=== PATIENT | female | born 1955 | race Caucasian/White ===

== ENCOUNTER 2017-04-03 15:02 | Emergency (ER) | payer MEDICAID ==
[~2017-04-03] VITALS: Ht 157.5 cm; Wt 111.1 kg
[2017-04-03 15:11] VITALS: BP_SYST 192
[2017-04-03] MEDS ORDERED: ONDANSETRON HCL 4 MG/2 ML VIAL IVP ONE (17:00)
[2017-04-03 17:15] LABS: BILIRUBIN,URINE NEGATIVE (NEGATIVE); BLOOD, URINE NEGATIVE (NEGATIVE); CLARITY/URINE CLEAR (CLEAR); COLOR,URINE YELLOW (YELLOW); GLUCOSE,URINE 3+ (NEGATIVE); KETONES,URINE NEGATIVE (NEGATIVE); LEUKOCYTE ESTERASE ,URINE NEGATIVE (NEGATIVE); NITRITE, URINE NEGATIVE (NEGATIVE); PROTEIN URINE NEGATIVE (NEGATIVE); UROBILINOGEN,URINE 0.2 (0.2-1.0)
[2017-04-03 17:17] LABS: BASOPHILS % (AUTO) 0.5 % (0.0-2.0); EOSINOPHILS # (AUTO) 0.3 K/uL (0.0-0.4); EOSINOPHILS % (AUTO) 3.6 % (0.0-4.0); HEMOGLOBIN 14.1 g/dL (12.0-16.0); LYMPHOCYTES # (AUTO) 3.2 K/uL (1.0-5.5); LYMPHOCYTES % (AUTO) 34.9 % (20.5-51.5); MEAN CORPUSCULAR HEMOGLOBIN 28 pg (27-31); MEAN CORPUSCULAR HGB CONC 33 % (32-36); MEAN CORPUSCULAR VOLUME 86 fL (79.0-98.0); MONOCYTES # (AUTO) 0.5 K/uL (0.0-1.0); MONOCYTES % (AUTO) 5.1 % (1.7-9.3); NEUTROPHILS # (AUTO) 5.1 K/uL (1.8-7.7); NEUTROPHILS % (AUTO) 55.9 % (40.0-70.0); PLATELET COUNT (AUTO) 200 K/uL (130-430); RED CELL DISTRIBUTION WIDTH 13.4 % (9.0-15.0); WHITE BLOOD COUNT (AUTO) 9.1 K/uL (4.8-10.8)
[2017-04-03 17:36] LABS: BACTERIA,URINE MODERATE /HPF (None Seen); MUCUS,URINE 1+ /LPF (None Seen); RBC,URINE 0-3 /HPF (0-3); WBC,URINE 0-3 /HPF (0-3)
[2017-04-03 17:40] LABS: CALCIUM 9.4 mg/dL (8.4-11.0); CREATININE 0.85 mg/dL (0.55-1.30)
[2017-04-03 17:44] LABS: ALBUMIN 3.9 g/dL (3.4-4.8); TOTAL BILIRUBIN 0.3 mg/dL (0.0-1.0); TOTAL PROTEIN, SERUM 8.6 g/dL (6.4-8.3)
[2017-04-03] MEDS ORDERED: PANTOPRAZOLE SODIUM 40 MG/VIAL (PROTONIX) IVP ONE (19:15)
[2017-04-03 19:40] VITALS: BP_SYST 166
== END 2017-04-03 19:40 | disposition home or self-care (01) ==
LOC: SED 15:02
DX: K64.4 Residual hemorrhoidal skin tags (principal); N39.0 Urinary tract infection, site not specified; I10 Essential (primary) hypertension
CPT/HCPCS: 36415; 74176; 80053; 81000; 82272; 85025; 87086; 96374; 96375; 99285; C9113; J2405

== ENCOUNTER 2019-02-05 12:38 | Inpatient (IN) | payer MEDICAID, MEDICARE ==
[~2019-02-05] VITALS: Ht 157.5 cm; Wt 110.7 kg
[2019-02-05 12:51] VITALS: BP_SYST 161
[2019-02-05] MEDS ORDERED: NACL 0.9% 1,000 ML IV ONE (14:00)
[2019-02-05 14:26] LABS: BILIRUBIN,URINE NEGATIVE (NEGATIVE); BLOOD, URINE NEGATIVE (NEGATIVE); CLARITY/URINE CLEAR (CLEAR); COLOR,URINE YELLOW (YELLOW); GLUCOSE,URINE NEGATIVE (NEGATIVE); KETONES,URINE NEGATIVE (NEGATIVE); LEUKOCYTE ESTERASE ,URINE NEGATIVE (NEGATIVE); NITRITE, URINE NEGATIVE (NEGATIVE); PROTEIN URINE NEGATIVE (NEGATIVE); UROBILINOGEN,URINE 0.2 (0.2-1.0)
[2019-02-05 15:02] LABS: BASOPHILS % (AUTO) 0.6 % (0.0-2.0); EOSINOPHILS # (AUTO) 0.2 K/uL (0.0-0.4); EOSINOPHILS % (AUTO) 2.6 % (0.0-4.0); HEMOGLOBIN 13.9 g/dL (12.0-16.0); LYMPHOCYTES # (AUTO) 3.3 K/uL (1.0-5.5); MEAN CORPUSCULAR HEMOGLOBIN 29 pg (27-31); MEAN CORPUSCULAR HGB CONC 33 % (32-36); MEAN CORPUSCULAR VOLUME 87 fL (79.0-98.0); MONOCYTES # (AUTO) 0.5 K/uL (0.0-1.0); NEUTROPHILS # (AUTO) 3.2 K/uL (1.8-7.7); NEUTROPHILS % (AUTO) 44.8 % (40.0-70.0); PLATELET COUNT (AUTO) 203 K/uL (130-430); RED BLOOD CELL COUNT(AUTO) 4.84 MIL/uL (4.2-6.2); RED CELL DISTRIBUTION WIDTH 14.2 % (9.0-15.0); WHITE BLOOD COUNT (AUTO) 7.3 K/uL (4.8-10.8)
[2019-02-05 15:13] LABS: CALCIUM 9.5 mg/dL (8.4-11.0); CREATININE 0.94 mg/dL (0.55-1.30); POTASSIUM 4.3 mmol/L (3.5-5.1)
[2019-02-05 15:20] LABS: ALBUMIN 3.6 g/dL (3.4-4.8); TOTAL BILIRUBIN 0.4 mg/dL (0.0-1.0)
[2019-02-05] MEDS ORDERED: LOSA100T3 PO (16:21)
[2019-02-05] MEDS ORDERED: LEVO175T7 PO (16:21)
[2019-02-05] MEDS ORDERED: GLUXR500 PO (16:21)
[2019-02-05 16:44] VITALS: BP_SYST 148
[2019-02-05] MEDS ORDERED: HYDROcodone/ACETAMIN 10-325 MG TAB PO PRN (19:45)
[2019-02-05] MEDS ORDERED: HYDROcodone/ACETAMIN 5-325 MG TAB (NORCO/ VICODIN) PO PRN (19:45)
[2019-02-05] MEDS: POLYETHYLENE GLYCOL 3350, 17 GM/ POWD.PACK PO SCH (19:45)
[2019-02-05] MEDS ORDERED: ONDANSETRON HCL 4 MG/2 ML VIAL IVP PRN (19:45)
[2019-02-05 20:18] VITALS: BP_SYST 160
[2019-02-05] MEDS ORDERED: D5W 1,000 ML IV PRN (20:42)
[2019-02-05] MEDS ORDERED: DEXTROSE 50% JECT 50 ML DISP.SYRIN IVP PRN (20:45)
[2019-02-05] MEDS ORDERED: GLUCOSE 15 GM GEL (in 37.5 GM TUBE) PO PRN (20:45)
[2019-02-05] MEDS ORDERED: LORazepam 2 MG/ML VIAL IVP PRN (20:45)
[2019-02-05] MEDS ORDERED: POLYETHYLENE GLYCOL 3350, 17 GM/ POWD.PACK PO SCH (21:00)
[2019-02-05] MEDS: NORMAL SALINE 5 ML DISP.SYRIN IVF SCH (21:48)
[2019-02-05] MEDS ORDERED: NORMAL SALINE 5 ML DISP.SYRIN IVF SCH (22:00)
[2019-02-05] MEDS: INSULIN REGULAR, HUMAN 100 UNITS/ML, 10 ML VIAL (novoLIN R) SUBCUT PRN (22:00)
[2019-02-05] MEDS ORDERED: cloNIDine HCL 0.1 MG TABLET PO PRN (23:15)
[2019-02-06] VITALS (7 sets, daily range): BP systolic 143–155
[2019-02-06] MEDS: NORMAL SALINE 5 ML DISP.SYRIN IVF SCH ×3 (06:16→20:30)
[2019-02-06] MEDS: LEVOTHYROXINE SODIUM 0.15 MG TABLET PO SCH (06:16)
[2019-02-06 06:25] LABS: BASOPHILS % (AUTO) 0.7 % (0.0-2.0); EOSINOPHILS # (AUTO) 0.3 K/uL (0.0-0.4); EOSINOPHILS % (AUTO) 3.7 % (0.0-4.0); HEMATOCRIT 37.7 % (36-48); HEMOGLOBIN 12.6 g/dL (12.0-16.0); LYMPHOCYTES # (AUTO) 3.4 K/uL (1.0-5.5); LYMPHOCYTES % (AUTO) 48.6 % (20.5-51.5); MEAN CORPUSCULAR HEMOGLOBIN 29 pg (27-31); MEAN CORPUSCULAR HGB CONC 33 % (32-36); MEAN CORPUSCULAR VOLUME 87 fL (79.0-98.0); MONOCYTES # (AUTO) 0.5 K/uL (0.0-1.0); MONOCYTES % (AUTO) 7.4 % (1.7-9.3); NEUTROPHILS # (AUTO) 2.8 K/uL (1.8-7.7); NEUTROPHILS % (AUTO) 39.6 % (40.0-70.0); PLATELET COUNT (AUTO) 175 K/uL (130-430); RED BLOOD CELL COUNT(AUTO) 4.34 MIL/uL (4.2-6.2); RED CELL DISTRIBUTION WIDTH 14.6 % (9.0-15.0)
[2019-02-06] MEDS ORDERED: LEVOTHYROXINE SODIUM 0.075 MG TABLET PO SCH (07:00)
[2019-02-06] MEDS ORDERED: LEVOTHYROXINE SODIUM 0.1 MG, LEVOTHYROXINE SODIUM 0.075 MG PO SCH ×2 (07:00)
[2019-02-06 07:32] LABS: CREATININE 0.88 mg/dL (0.55-1.30); POTASSIUM 4.2 mmol/L (3.5-5.1)
[2019-02-06] MEDS: LOSARTAN POTASSIUM 50 MG TABLET (COZAAR) PO SCH (08:41)
[2019-02-06] MEDS: POLYETHYLENE GLYCOL 3350, 17 GM/ POWD.PACK PO SCH (08:43)
[2019-02-06] MEDS ORDERED: NON-FORMULARY MEDICATION (Levothyroxine Sodium 175 MCG) PO SCH (09:00)
[2019-02-06] MEDS: INSULIN REGULAR, HUMAN 100 UNITS/ML, 10 ML VIAL (novoLIN R) SUBCUT PRN ×2 (11:31→16:44)
[2019-02-06] MEDS ORDERED: IOHEXOL 100 ML IV ONE (13:41)
[2019-02-06] MEDS ORDERED: BISACODYL 5 MG TABLET.DR (DULCOLAX) PO ONE (17:00)
[2019-02-06] MEDS ORDERED: GOLYTELY / COLYTE SOLUTION 4 LITERS PO ONE (18:00)
[2019-02-06] MEDS ORDERED: MAGNESIUM CITRATE 300 ML ORAL SOLUTION PO ONE (19:00)
[2019-02-07] MEDS: LEVOTHYROXINE SODIUM 0.15 MG TABLET PO SCH (04:38)
[2019-02-07 05:43] LABS: EOSINOPHILS # (AUTO) 0.2 K/uL (0.0-0.4); HEMATOCRIT 38.6 % (36-48); HEMOGLOBIN 12.9 g/dL (12.0-16.0); MEAN CORPUSCULAR HGB CONC 33 % (32-36); MONOCYTES # (AUTO) 0.5 K/uL (0.0-1.0); RED BLOOD CELL COUNT(AUTO) 4.46 MIL/uL (4.2-6.2); WHITE BLOOD COUNT (AUTO) 7.4 K/uL (4.8-10.8)
[2019-02-07] MEDS: NORMAL SALINE 5 ML DISP.SYRIN IVF SCH ×3 (05:59→20:36)
[2019-02-07 07:00] LABS: BASOPHILS # (AUTO) 0.1 K/uL (0.0-0.2); BASOPHILS % (AUTO) 0.7 % (0.0-2.0); EOSINOPHILS % (AUTO) 2.8 % (0.0-4.0); LYMPHOCYTES # (AUTO) 3.1 K/uL (1.0-5.5); LYMPHOCYTES % (AUTO) 42.2 % (20.5-51.5); MEAN CORPUSCULAR HEMOGLOBIN 29 pg (27-31); MEAN CORPUSCULAR VOLUME 86 fL (79.0-98.0); MONOCYTES % (AUTO) 6.8 % (1.7-9.3); NEUTROPHILS # (AUTO) 3.5 K/uL (1.8-7.7); NEUTROPHILS % (AUTO) 47.5 % (40.0-70.0); PLATELET COUNT (AUTO) 186 K/uL (130-430); RED CELL DISTRIBUTION WIDTH 14.1 % (9.0-15.0)
[2019-02-07 07:08] LABS: PROTHROMBIN TIME 10.2 SECS (9.5-12.5)
[2019-02-07 07:14] LABS: CALCIUM 9.6 mg/dL (8.4-11.0); CREATININE 0.88 mg/dL (0.55-1.30); POTASSIUM 3.8 mmol/L (3.5-5.1)
[2019-02-07 08:14] VITALS: BP_SYST 146
[2019-02-07] MEDS: LOSARTAN POTASSIUM 50 MG TABLET (COZAAR) PO SCH (08:15)
[2019-02-07] MEDS: POLYETHYLENE GLYCOL 3350, 17 GM/ POWD.PACK PO SCH (08:15)
[2019-02-07] MEDS ORDERED: SIMETHICONE 40 MG/0.6 ML ML ONE (10:57)
[2019-02-07 12:09] VITALS: BP_SYST 156
[2019-02-07] MEDS: MEPERIDINE HCL/PF 100 MG/ML AMP ONE ×2 (12:58→13:00)
[2019-02-07] MEDS: MIDAZOLAM HCL 5 MG/5 ML VIAL ONE ×5 (12:58→13:18)
[2019-02-07 17:01] VITALS: BP_SYST 129
[2019-02-07] MEDS: INSULIN REGULAR, HUMAN 100 UNITS/ML, 10 ML VIAL (novoLIN R) SUBCUT PRN (17:36)
[2019-02-07 20:15] VITALS: BP_SYST 114
[2019-02-08 00:03] VITALS: BP_SYST 121
[2019-02-08 05:52] LABS: BASOPHILS # (AUTO) 0.1 K/uL (0.0-0.2); BASOPHILS % (AUTO) 0.7 % (0.0-2.0); EOSINOPHILS # (AUTO) 0.2 K/uL (0.0-0.4); EOSINOPHILS % (AUTO) 3.4 % (0.0-4.0); HEMATOCRIT 40.9 % (36-48); HEMOGLOBIN 13.6 g/dL (12.0-16.0); LYMPHOCYTES # (AUTO) 3.4 K/uL (1.0-5.5); LYMPHOCYTES % (AUTO) 47.8 % (20.5-51.5); MEAN CORPUSCULAR HEMOGLOBIN 29 pg (27-31); MEAN CORPUSCULAR HGB CONC 33 % (32-36); MEAN CORPUSCULAR VOLUME 87 fL (79.0-98.0); MONOCYTES # (AUTO) 0.4 K/uL (0.0-1.0); MONOCYTES % (AUTO) 5.3 % (1.7-9.3); NEUTROPHILS # (AUTO) 3.1 K/uL (1.8-7.7); NEUTROPHILS % (AUTO) 42.8 % (40.0-70.0); PLATELET COUNT (AUTO) 193 K/uL (130-430); RED CELL DISTRIBUTION WIDTH 14.4 % (9.0-15.0); WHITE BLOOD COUNT (AUTO) 7.2 K/uL (4.8-10.8)
[2019-02-08] MEDS: LEVOTHYROXINE SODIUM 0.15 MG TABLET PO SCH (06:21)
[2019-02-08] MEDS: NORMAL SALINE 5 ML DISP.SYRIN IVF SCH ×2 (06:22→14:35)
[2019-02-08 06:39] LABS: CALCIUM 9.2 mg/dL (8.4-11.0); CREATININE 0.92 mg/dL (0.55-1.30); POTASSIUM 3.7 mmol/L (3.5-5.1)
[2019-02-08 08:00] VITALS: BP_SYST 151
[2019-02-08] MEDS: POLYETHYLENE GLYCOL 3350, 17 GM/ POWD.PACK PO SCH (08:16)
[2019-02-08] MEDS: LOSARTAN POTASSIUM 50 MG TABLET (COZAAR) PO SCH (08:17)
[2019-02-08] MEDS: INSULIN REGULAR, HUMAN 100 UNITS/ML, 10 ML VIAL (novoLIN R) SUBCUT PRN (11:22)
[2019-02-08 13:05] VITALS: BP_SYST 161
[2019-02-08] MEDS ORDERED: LEVO175T7 PO (14:43)
[2019-02-08 14:51] VITALS: BP_SYST 161
[2019-02-08 16:50] VITALS: BP_SYST 144
== END 2019-02-08 18:01 | disposition home or self-care (01) | DRG 241 ==
LOC: SED 12:38 → SMU 15:41
PROVIDERS: ADMIT Preventive Medicine Preventive Medicine/Occupational Environmental Medicine; ATTEND Preventive Medicine Preventive Medicine/Occupational Environmental Medicine
PROC: 0DBH8ZZ Excision of Cecum, Via Natural or Artificial Opening Endoscopic (ICD-10-PCS; 2019-02-07)
PROC: 0DB68ZX Excision of Stomach, Via Natural or Artificial Opening Endoscopic, Diagnostic (ICD-10-PCS; principal; 2019-02-07 13:00)
PROC: 0DB98ZZ Excision of Duodenum, Via Natural or Artificial Opening Endoscopic (ICD-10-PCS; 2019-02-07 13:00)
DX: K29.70 Gastritis, unspecified, without bleeding (principal); E11.22 Type 2 diabetes mellitus with diabetic chronic kidney disease; K59.00 Constipation, unspecified; N28.1 Cyst of kidney, acquired; E03.9 Hypothyroidism, unspecified; K63.5 Polyp of colon; E11.65 Type 2 diabetes mellitus with hyperglycemia; I12.9 Hypertensive chronic kidney disease with stage 1 through stage 4 chronic kidney disease, or unspecified chronic kidney disease; K64.8 Other hemorrhoids; N18.9 Chronic kidney disease, unspecified; E66.01 Morbid (severe) obesity due to excess calories; Z79.899 Other long term (current) drug therapy
CPT/HCPCS: 36415; 43239; 45380; 80048; 80053; 81003; 82962; 83605; 83690-TC; 85025; 85610-TC; 85730-TC; 87081; 88305; 88312; 88313; 96360; 99285; J2175; J2250; J7030; Q9967

== ENCOUNTER 2020-07-27 19:11 | Emergency (ER) | payer MEDICARE, MEDICAID ==
[~2020-07-27] VITALS: Ht 157.5 cm; Wt 108.9 kg
[~2020-07-27 19:11] MED LIST: GLUXR500 PO; LEVO175T7 PO; LOSA100T3 PO
[2020-07-27 19:25] VITALS: BP_SYST 159
[2020-07-27 21:09] LABS: BASOPHILS % (AUTO) 0.6 % (0.0-2.0); EOSINOPHILS # (AUTO) 0.2 K/uL (0.0-0.4); EOSINOPHILS % (AUTO) 2.9 % (0.0-4.0); HEMATOCRIT 41.7 % (36-48); LYMPHOCYTES # (AUTO) 3.2 K/uL (1.0-5.5); LYMPHOCYTES % (AUTO) 43.4 % (20.5-51.5); MEAN CORPUSCULAR HEMOGLOBIN 29 pg (27-31); MEAN CORPUSCULAR HGB CONC 34 % (32-36); MEAN CORPUSCULAR VOLUME 86 fL (79.0-98.0); MONOCYTES # (AUTO) 0.5 K/uL (0.0-1.0); MONOCYTES % (AUTO) 6.2 % (1.7-9.3); NEUTROPHILS # (AUTO) 3.5 K/uL (1.8-7.7); NEUTROPHILS % (AUTO) 46.9 % (40.0-70.0); PLATELET COUNT (AUTO) 189 K/uL (130-430); RED BLOOD CELL COUNT(AUTO) 4.84 MIL/uL (4.2-6.2); RED CELL DISTRIBUTION WIDTH 14.3 % (9.0-15.0); WHITE BLOOD COUNT (AUTO) 7.4 K/uL (4.8-10.8)
[2020-07-27 21:11] LABS: BILIRUBIN,URINE NEGATIVE (NEGATIVE); BLOOD, URINE NEGATIVE (NEGATIVE); CLARITY/URINE CLEAR (CLEAR); COLOR,URINE YELLOW (YELLOW); GLUCOSE,URINE NEGATIVE (NEGATIVE); KETONES,URINE NEGATIVE (NEGATIVE); LEUKOCYTE ESTERASE ,URINE NEGATIVE (NEGATIVE); NITRITE, URINE NEGATIVE (NEGATIVE); PROTEIN URINE NEGATIVE (NEGATIVE); UROBILINOGEN,URINE 0.2 (0.2-1.0)
[2020-07-27 21:13] LABS: CALCIUM 9.2 mg/dL (8.4-11.0); CREATININE 1.01 mg/dL (0.55-1.30); POTASSIUM 3.6 mmol/L (3.5-5.1)
[2020-07-27 21:18] LABS: ALBUMIN 3.8 g/dL (3.4-4.8); TOTAL BILIRUBIN 0.3 mg/dL (0.0-1.0)
[2020-07-27 22:03] VITALS: BP_SYST 147
== END 2020-07-27 22:03 | disposition home or self-care (01) ==
LOC: SED 19:11
DX: R10.13 Epigastric pain (principal); R42 Dizziness and giddiness; R11.0 Nausea; I10 Essential (primary) hypertension; E11.9 Type 2 diabetes mellitus without complications; Z79.899 Other long term (current) drug therapy
CPT/HCPCS: 36415; 80053; 81003; 83690-TC; 85025; 93005; 99284

== ENCOUNTER 2022-11-18 10:50 | Emergency (ER) | payer MEDICARE, MEDICAID ==
[~2022-11-18] VITALS: Ht 160 cm; Wt 81.6 kg
[~2022-11-18 10:50] MED LIST changes: -LOSA100T3 PO; +LOSA100T4 PO
[2022-11-18 10:59] VITALS: BP_SYST 172
--- NOTE | 2022-11-18 11:13 | NUR ---
assumed patient care pt c/o nausea, chills and anxiety for 3 days. patient states she had recent deaths in her family and she has been feel anxious and noted her bs to be elevated. pt aox4 gcs 15 placed in room 3 placed on tele monitor.
[2022-11-18 11:15] VITALS: BP_SYST 144
[2022-11-18] MEDS ORDERED: METOCLOPRAMIDE HCL 10 MG TABLET PO ONE (11:15)
[2022-11-18 11:40] LABS: BASOPHILS % (AUTO) 0.5 % (0.0-2.0); EOSINOPHILS # (AUTO) 0.2 K/uL (0.0-0.4); EOSINOPHILS % (AUTO) 2.1 % (0.0-4.0); HEMATOCRIT 35.8 % (36-48); LYMPHOCYTES # (AUTO) 1.4 K/uL (1.0-5.5); LYMPHOCYTES % (AUTO) 18.7 % (20.5-51.5); MEAN CORPUSCULAR HEMOGLOBIN 29 pg (27-31); MEAN CORPUSCULAR HGB CONC 34 % (32-36); MEAN CORPUSCULAR VOLUME 86 fL (79.0-98.0); MONOCYTES # (AUTO) 0.6 K/uL (0.0-1.0); NEUTROPHILS # (AUTO) 5.3 K/uL (1.8-7.7); NEUTROPHILS % (AUTO) 70.7 % (40.0-70.0); PLATELET COUNT (AUTO) 226 K/uL (130-430); RED BLOOD CELL COUNT(AUTO) 4.15 MIL/uL (4.2-6.2); RED CELL DISTRIBUTION WIDTH 14.9 % (9.0-15.0); WHITE BLOOD COUNT (AUTO) 7.6 K/uL (4.8-10.8)
[2022-11-18 11:53] LABS: ANION GAP 8 (5-15); CALCIUM 9.1 mg/dL (8.4-11.0); CHLORIDE 100 mmol/L (98-107); GLUCOSE 312 mg/dL (70-99); UREA NITROGEN, BLOOD 14 mg/dL (8-21)
[2022-11-18 11:54] LABS: GFR AFRICAN AMERICAN 64 mL/min (>90)
[2022-11-18 11:59] LABS: ALANINE AMINOTRANSFERASE 23 U/L (12-78); ALBUMIN 2.8 g/dL (3.4-4.8); ASPARTATE AMINOTRANSFERASE 17 U/L (10-37); LIPASE 269 U/L (73-393); TOTAL BILIRUBIN 0.5 mg/dL (0.0-1.0)
[2022-11-18] MEDS ORDERED: NACL 0.9% 1,000 ML IV ONE (12:15)
--- NOTE | 2022-11-18 12:24 | NUR ---
PATIENT UP TO RESTROOM AMBULATION STEADY. SITTING AT BEDSIDE
[2022-11-18] MEDS ORDERED: ALPR0.25 PO (12:48)
[2022-11-18] MEDS ORDERED: METO-290 PO (12:48)
--- NOTE | 2022-11-18 13:47 | NUR ---
IV D/C PATIENT DISCHARGED ACCORDINGLY WILL FOLLOW UP WITH PRIMARY CARE. NO RESPIRATORY DISTRESS NOTED PT AMBULATED OUT OF ER.
--- NOTE | 2022-11-18 13:53 | NUR ---
Patient given written and verbal discharge instructions and verbalizes understanding. ER MD discussed with patient the results and treatment provided. Patient in stable condition. ID arm band removed. IV catheter removed intact and dressing applied, no active bleeding. Rx of XANAX AND REGLAN given. Patient educated on pain management and to follow up with PMD. Pain Scale . Opportunity for questions provided and answered. Medication side effect fact sheet provided.
== END 2022-11-18 13:53 | disposition home or self-care (01) ==
LOC: SED 10:50
DX: F43.9 Reaction to severe stress, unspecified (principal); R11.0 Nausea; E11.9 Type 2 diabetes mellitus without complications; I10 Essential (primary) hypertension; G47.00 Insomnia, unspecified; Z79.899 Other long term (current) drug therapy
CPT/HCPCS: 99285; 96360; 71045; 80053; 82962; 83690; 85025; 84484; 36415; 93005; 81002; J8597; J7030

== ENCOUNTER 2022-12-23 12:50 | Emergency (ER) | payer MEDICARE, MEDICAID ==
[~2022-12-23] VITALS: Ht 160 cm; Wt 99.8 kg
[~2022-12-23 12:50] MED LIST changes: +ALPR0.25 PO; +METO-290 PO
[2022-12-23 12:55] VITALS: BP_SYST 167
--- NOTE | 2022-12-23 12:55 | NUR ---
Patient to ER bed H1 to gown for evaluation. Side rails up.
[2022-12-23 13:53] LABS: BASOPHILS % (AUTO) 0.6 % (0.0-2.0); EOSINOPHILS # (AUTO) 0.1 K/uL (0.0-0.4); EOSINOPHILS % (AUTO) 1.7 % (0.0-4.0); HEMATOCRIT 38.3 % (36-48); HEMOGLOBIN 12.7 g/dL (12.0-16.0); LYMPHOCYTES % (AUTO) 28.1 % (20.5-51.5); MEAN CORPUSCULAR HEMOGLOBIN 29 pg (27-31); MEAN CORPUSCULAR HGB CONC 33 % (32-36); MEAN CORPUSCULAR VOLUME 88 fL (79.0-98.0); MONOCYTES # (AUTO) 0.4 K/uL (0.0-1.0); MONOCYTES % (AUTO) 6.2 % (1.7-9.3); NEUTROPHILS # (AUTO) 4.4 K/uL (1.8-7.7); NEUTROPHILS % (AUTO) 63.4 % (40.0-70.0); PLATELET COUNT (AUTO) 194 K/uL (130-430); RED BLOOD CELL COUNT(AUTO) 4.37 MIL/uL (4.2-6.2); RED CELL DISTRIBUTION WIDTH 15.6 % (9.0-15.0)
[2022-12-23 14:05] LABS: CALCIUM 9.3 mg/dL (8.4-11.0); CREATININE 1.01 mg/dL (0.55-1.30)
--- NOTE | 2022-12-23 14:08 | NUR ---
PT BIB DAUGHTER COMPLAINS OF CONSTIPATION X 5D. PT HAS DISCOMFORT AND ABD DISTENTION. PT HAS NAUSEA. NO VOMITING. PT HX OF DIABETES AND HTN. PATIENT GAVE URINE SAMPLE TO TO LAB. PT SITTING COMFORTABLY WITH DAUGHTER IN THE HALLWAY.
[2022-12-23 14:10] LABS: ALBUMIN 3.8 g/dL (3.4-4.8); C-REACTIVE PROTEIN QUANT 0.7 mg/dL (0-0.5); TOTAL BILIRUBIN 0.7 mg/dL (0.0-1.0)
--- NOTE | 2022-12-23 14:11 | NUR ---
ER at bedside examining patient.
[2022-12-23 14:13] LABS: BILIRUBIN,URINE NEGATIVE (NEGATIVE); BLOOD, URINE NEGATIVE (NEGATIVE); CLARITY/URINE CLEAR (CLEAR); COLOR,URINE YELLOW (YELLOW); GLUCOSE,URINE NEGATIVE (NEGATIVE); KETONES,URINE 1+ (NEGATIVE); LEUKOCYTE ESTERASE ,URINE NEGATIVE (NEGATIVE); NITRITE, URINE NEGATIVE (NEGATIVE); PH,URINE 5.5 (5.0-8.0); PROTEIN URINE NEGATIVE (NEGATIVE); UROBILINOGEN,URINE 0.2 (0.2-1.0)
[2022-12-23] MEDS ORDERED: ONDANSETRON 4 MG ODT TAB PO ONE (14:15)
[2022-12-23] MEDS ORDERED: KETOROLAC TROMETHAMINE 30 MG VIAL IM ONE (14:15)
--- NOTE | 2022-12-23 15:21 | NUR ---
PT RESTING COMFORTABLY WITH DAUGHTER IN HALLWAY EATING PUDDING AND APPLE SAUCE.
--- NOTE | 2022-12-23 15:25 | NUR ---
KHADIJAH Ross at bedside examining patient.
[2022-12-23] MEDS ORDERED: NA P133E41 RC (15:31)
[2022-12-23] MEDS ORDERED: MAGN296S8 PO (15:31)
[2022-12-23 15:47] VITALS: BP_SYST 167
--- NOTE | 2022-12-23 15:48 | NUR ---
Patient given written and verbal discharge instructions and verbalizes understanding. ER MD discussed with patient the results and treatment provided. Patient in stable condition. ID arm band removed. Rx of MAGNESIUM CITRATE AND FLEET ENEMA given. Patient educated on pain management and to follow up with PMD. Pain Scale 0/10. Opportunity for questions provided and answered. Medication side effect fact sheet provided.
== END 2022-12-23 15:48 | disposition home or self-care (01) ==
LOC: SED 12:50
DX: K59.00 Constipation, unspecified (principal); R10.32 Left lower quadrant pain; R11.2 Nausea with vomiting, unspecified; E11.9 Type 2 diabetes mellitus without complications; I10 Essential (primary) hypertension; Z79.899 Other long term (current) drug therapy
CPT/HCPCS: 99285; 74176; 80053; 82150; 82962; 83690; 85025; 86140; 36415; 76376; 96372; 83605; 81003; Q0162; J1885